=== PATIENT | female | born 1975 | race Caucasian/White ===

== ENCOUNTER 2017-01-24 15:25 | Emergency (ER) | payer MEDICAID | END 2017-01-24 15:55 | disposition home or self-care (01) | LOC: LB.ED 15:25 | DX: R11.0 Nausea (principal); Z53.21 Procedure and treatment not carried out due to patient leaving prior to being seen by health care provider | CPT/HCPCS: 99282 ==

== ENCOUNTER 2019-01-12 09:54 | Inpatient (IN) | payer MEDICAID ==
[2019-01-12] MEDS ORDERED: DICYCLOMINE 20 MG PO PRN (16:12)
[2019-01-12] MEDS ORDERED: Non-Formulary Medication 1 Each (Lorazepam [Lorazepam] 0.5 MG) PO PRN (16:33)
[2019-01-12] MEDS ORDERED: PROMETHAZINE HCL 25 MG PO PRN (16:33)
[2019-01-12] MEDS ORDERED: Dicyclomine 10 MG Cap PO PRN ×2 (16:33→18:36)
[2019-01-12] MEDS ORDERED: ALPRAZolam 0.25 MG Tab PO PRN (16:33)
[2019-01-12] MEDS ORDERED: Acetaminophen 325 MG Tab PO SCH (18:00)
[2019-01-12] MEDS ORDERED: Loperamide 2 MG Cap PO PRN (18:41)
[2019-01-12] MEDS ORDERED: LORazepam 0.5 MG Tab PO PRN (18:44)
[2019-01-12] MEDS ORDERED: Promethazine 25 MG Tab PO PRN (18:47)
[2019-01-12] MEDS ORDERED: Scopolamine 1.5 MG Transdermal Patch TRDERM SCH (19:00)
[2019-01-12] MEDS: oxyCODONE 5 MG Tab PO PRN (19:08)
[2019-01-12] MEDS: Gabapentin 100 MG Cap PO SCH (19:37)
[2019-01-12] MEDS: Ibuprofen 600 MG Tab PO SCH (19:38)
[2019-01-12] MEDS: Acetaminophen 650 MG Tab.ER PO SCH ×2 (19:38→23:31)
--- NOTE | 2019-01-12 19:40 | PCM.HP ---
H&P History of Present Illness - General Date of Service: 01/12/19 Admit Problem/Dx: Admission Diagnosis/Problem Admission Diagnosis/Problem Weakness S/P craniotomy Source of Information: Patient, Old Records, RN History Limitations: Reports: No Limitations - History of Present Illness Initial Comments - Free Text/Narative: 43 yr old female presents for SWING bed admission for strengthening, S/P craniotomy. Pt transferred by family from [facility], to [facility] this afternoon. Pt states she is having pain to head and pressure behind eyes, but improved from the past. Resolving Bruising noted to arms and right side of face and neck. Pt is alert and talkative and states thankful to be alive and able to function. States some dizziness persists intermittently and some anxiety and nausea. She states she has been ambulating with use of the walker. PT/OT ordered for strengthening. Dressing to head to be changed in am. No drainage noted to bandage. RN is reinforcing the bandage tonight. - Related Data Allergies/Adverse Reactions: Allergies Allergy/AdvReac Type Severity Reaction Status Date / Time No Known Allergies Allergy Verified 01/12/19 15:03 Home Medications: Home Meds ALPRAZolam [Alprazolam] 0.25 mg PO TID 01/12/19 [History] ALPRAZolam [Alprazolam] 0.5 mg PO Q8HR PRN 01/12/19 [History] Acetaminophen 650 mg PO Q6HR 01/12/19 [History] Bacitracin [Bacitracin Ophth Oint] 1 applic TOP DAILY 01/12/19 [History] Dicyclomine [Bentyl] 20 mg PO TID PRN 01/12/19 [History] Esomeprazole [NexIUM] 40 mg PO DAILY 01/12/19 [History] Gabapentin [Neurontin] 200 mg PO TID 01/12/19 [History] Ibuprofen 600 mg PO QID 01/12/19 [History] LORazepam 0.5 mg PO QID PRN 01/12/19 [History] Loperamide [Imodium] 2 mg PO DAILY 01/12/19 [History] Norgestimate-Ethinyl Estradiol [Norg-Ee 0.18-0.215-0.25/0.035] 1 each PO DAILY 01/12/19 [History] Ondansetron [Zofran ODT] 8 mg PO TID PRN 01/12/19 [History] Promethazine HCl 25 mg PO Q6H PRN 01/12/19 [History] Propranolol [Inderal] 10 mg PO BID 01/12/19 [History] Remove Patch 1 ea TRDERM BEDTIME 01/12/19 [History] Scopolamine [Transderm-Scop] 1 patch TD Q3D 01/12/19 [History] Sennosides/Docusate Sodium [Senna-Docusate Sodium Tablet] 2 tab PO BID 01/12/19 [History] oxyCODONE 1 - 2 tab PO Q6H PRN 01/12/19 [History] Social & Family History - Caffeine Use Caffeine Use: Reports: Coffee, Soda H&P Review of Systems - Review of Systems: Review Of Systems: See Below General: Reports: Weakness, Fatigue. Denies: Fever, Chills HEENT: Reports: Eye Pain, Headaches, Hearing Changes (States blood clot behind the left ear and no hearing from here now.). Denies: Sore Throat Pulmonary: Reports: Cough (some dry cough). Denies: Shortness of Breath, Wheezing Cardiovascular: Denies: Chest Pain, Dyspnea on Exertion, Edema Gastrointestinal: Reports: Nausea, Other (using stool softeners bid). Denies: Abdominal Pain, Difficulty Swallowing Genitourinary: Reports: No Symptoms Musculoskeletal: Reports: No Symptoms Skin: Reports: Wound (left posterior head) Psychiatric: Reports: Anxiety, Agitation. Denies: Depression, Suicidal Ideation Neurological: Reports: Dizziness, Headache, Weakness, Other (forgetting mid sentence of thoughts, occasional). Denies: Change in Speech Exam - Exam Exam: See Below - Exam Quality Assessment: No: Supplemental Oxygen, Urinary Catheter, Skin Breakdown General: Alert, Oriented, Cooperative HEENT: Mucosa Moist & [place] Neck: Supple, Trachea Midline Lungs: Clear to Auscultation, Normal Respiratory Effort Cardiovascular: Regular Rate, Regular Rhythm GI/Abdominal Exam: Normal Bowel Sounds, Soft, Non-Tender Extremities: Normal Inspection, Normal Range of Motion, Non-Tender, No Pedal Edema, Normal Capillary Refill Peripheral Pulses: 2+: Radial (L), Radial (R), Dorsalis Pedis (L), Dorsalis Pedis (R) Skin: Warm, Dry Neurological: Strength Equal Bilateral, Normal Speech Neuro Extensive - Mental Status: Alert, Oriented x3, Normal Mood/Affect, Normal Cognition Neuro Extensive - Motor, Sensory, Reflexes: CN II-XII Intact Psychiatric: Alert, Anxious - Problem List (1) Weakness SNOMED Code(s): 10468717 ICD Code: R53.1 - WEAKNESS Status: Acute Current Visit: Yes (2) S/P craniotomy SNOMED Code(s): 374297916, 70661898, 407685675 ICD Code: Z98.890 - OTHER SPECIFIED POSTPROCEDURAL STATES Status: Acute Current Visit: Yes (3) Anxiety SNOMED Code(s): 08522736 ICD Code: F41.9 - ANXIETY DISORDER, UNSPECIFIED Status: Acute Current Visit: Yes (4) Anemia SNOMED Code(s): 632921054 ICD Code: D64.9 - ANEMIA, UNSPECIFIED Status: Acute Current Visit: Yes Problem List Initiated/Reviewed/Updated: Yes Orders Last 24hrs: Active Orders 24 hr Category Date Time Status Patient Status [ADT] Routine ADT 01/12/19 12:05 Active Oxygen Therapy [RC] PRN Care 01/12/19 12:09 Active Up With Assistance [RC] ASDIRECTED Care 01/12/19 12:09 Active Vital Signs [RC] Q4H Care 01/12/19 12:09 Active OT Evaluation and Treatment [CONS] Routine Cons 01/12/19 16:41 Active PT Evaluation and Treatment [CONS] Routine Cons 01/12/19 16:41 Active Regular Diet [DIET] Diet 01/12/19 Dinner Ordered CBC WITH AUTO DIFF [HEME] Routine Lab 01/13/19 08:00 Ordered ALPRAZolam [Xanax] Med 01/12/19 20:00 Active 0.25 mg PO TID ALPRAZolam [Xanax] Med 01/12/19 18:32 Active 0.5 mg PO Q8H PRN Acetaminophen [Tylenol Arthritis Pain] Med 01/12/19 18:30 Active 650 mg PO Q6HR Bacitracin [Bacitracin Oint 1 GM] Med 01/13/19 08:00 Active 1 dose TOP DAILY Dicyclomine [Bentyl] Med 01/12/19 18:36 Active 20 mg PO TID PRN Docusate Sodium/Sennosides [Senna Plus] Med 01/12/19 20:00 Active 2 tab PO BID Esomeprazole [NexIUM] Med 01/13/19 07:00 Active 40 mg PO ACBREAKFAST Gabapentin [Neurontin] Med 01/12/19 20:00 Active 200 mg PO TID Ibuprofen [Motrin] Med 01/12/19 20:00 Active 600 mg PO QID LORazepam [Ativan] Med 01/12/19 18:44 Active 0.5 mg PO QID PRN Loperamide [Imodium] Med 01/12/19 18:41 Active 2 mg PO DAILY PRN Non-Formulary Medication [NF Drug] Med 01/13/19 08:00 Active 1 each PO DAILY Ondansetron [Zofran ODT] Med 01/12/19 18:46 Active 8 mg PO TID PRN Promethazine [Phenergan] Med 01/12/19 18:47 Active 25 mg PO Q6H PRN Propranolol [Inderal] Med 01/12/19 20:00 Active 10 mg PO BID Remove Patch Med 01/15/19 06:00 Active 1 ea TRDERM DAILY@0600 Scopolamine [Transderm-Scop] Med 01/15/19 06:00 Active 1.5 mg TRDERM Q3D oxyCODONE Med 01/12/19 18:20 Active 5 - 10 mg PO Q6H PRN Code Status [Resuscitation Status] Routine Resus Stat 01/12/19 15:30 Ordered Medication Orders Acetaminophen (Tylenol Arthritis Pain) 650 mg PO Q6HR [facility] Stop: 02/01/19 12:01 Alprazolam (Xanax) 0.5 mg PO Q8H PRN PRN Reason: Anxiety Alprazolam (Xanax) 0.25 mg PO TID [facility] Bacitracin (Bacitracin Oint 1 Gm) 1 dose TOP DAILY [facility] Stop: 01/23/19 08:01 Dicyclomine HCl (Bentyl) 20 mg PO TID PRN PRN Reason: Pain Esomeprazole Magnesium (Nexium) 40 mg PO ACBREAKFAST JUAN C Gabapentin (Neurontin) 200 mg PO TID [facility] Stop: 02/09/19 14:01 Ibuprofen (Motrin) 600 mg PO QID [facility] Stop: 01/22/19 20:01 Loperamide HCl (Imodium) 2 mg PO DAILY PRN PRN Reason: Diarrhea Lorazepam (Ativan) 0.5 mg PO QID PRN PRN Reason: Agitation Miscellaneous Information (Remove Patch) 1 ea TRDERM DAILY@0600 [facility] Norgestimate-Ethinyl Estradiol 0.18/0. 215/0.25 Tablet 1 each PO DAILY [facility] Ondansetron HCl (Zofran Odt) 8 mg PO TID PRN PRN Reason: Nausea Oxycodone HCl (Oxycodone) 5 - 10 mg PO Q6H PRN PRN Reason: Pain Last Admin: 01/12/19 19:08 Dose: 10 mg Promethazine HCl (Phenergan) 25 mg PO Q6H PRN PRN Reason: Nausea/Vomiting Stop: 01/16/19 18:48 Propranolol HCl (Inderal) 10 mg PO BID [facility] Scopolamine (Transderm-Scop) 1.5 mg TRDERM Q3D [facility] Senna/Docusate Sodium (Senna Plus) 2 tab PO BID [facility] Stop: 03/13/19 08:01 Assessment/Plan Comment:: 01-12-2019: Weakness: Consult for PT/OT for evaluation and treatment and strengthening Assist with ambulation as needed. Anxiety: Keep room quiet and lighting as tolerated. Medications as ordered. S/P craniotomy: Medication for H/A as ordered. Change dressing daily to head and prn, apply bacitracin to area. Medication for prevention of constipation as ordered. Anemia: CBC in am. Due to hinduism beliefs, pt declines blood transfusions.
[2019-01-12] MEDS ORDERED: PROPRANOLOL 10 MG PO SCH (20:00)
[2019-01-12] MEDS ORDERED: Gabapentin 100 MG Cap PO SCH (20:00)
[2019-01-12] MEDS ORDERED: Non-Formulary Medication 1 Each (Sennosides/Docusate Sodium [Senna-Docusate Sodium Tablet] PO SCH (20:00)
[2019-01-12] MEDS ORDERED: ALPRAZolam 0.25 MG Tab PO SCH (20:00)
[2019-01-12] MEDS ORDERED: Ibuprofen 600 MG Tab PO SCH (20:00)
[2019-01-12] MEDS: Propranolol 20 MG Tab PO SCH (21:49)
[2019-01-12] MEDS: ALPRAZolam 0.25 MG Tab PO SCH ×2 (21:49→21:59)
[2019-01-12] MEDS: ALPRAZolam 0.25 MG Tab PO PRN (21:59)
[2019-01-13] MEDS: oxyCODONE 5 MG Tab PO PRN ×4 (01:00→23:04)
[2019-01-13] MEDS ORDERED: Diazepam 5 MG Tab ONE (02:34)
[2019-01-13] MEDS ORDERED: Diazepam 5 MG Tab PO ONE (02:46)
[2019-01-13] MEDS ORDERED: Pantoprazole 40 MG Tab.CR PO SCH (07:00)
[2019-01-13] MEDS ORDERED: Non-Formulary Medication 1 Each (Loperamide [Imodium] 2 MG) PO SCH (08:00)
[2019-01-13] MEDS ORDERED: [UNRECOGNIZED DRUG - OTHER] PO SCH (08:00)
[2019-01-13] MEDS ORDERED: NORGESTIMATE ETHINYL ESTRADIOL PO SCH (08:00)
[2019-01-13] MEDS ORDERED: Fluconazole 150 MG Tab PO SCH (08:00)
[2019-01-13] MEDS ORDERED: Bacitracin Oint 1 GM U/D Packet TOP SCH (08:00)
[2019-01-13] MEDS: Ibuprofen 600 MG Tab PO SCH ×4 (08:12→19:59)
[2019-01-13] MEDS: Acetaminophen 650 MG Tab.ER PO SCH ×2 (08:12→11:39)
[2019-01-13] MEDS: Gabapentin 100 MG Cap PO SCH ×3 (08:13→19:59)
[2019-01-13] MEDS: ALPRAZolam 0.25 MG Tab PO SCH ×3 (08:14→20:09)
[2019-01-13] MEDS: Esomeprazole 40 MG Cap PO SCH (08:14)
[2019-01-13] MEDS: Bacitracin Oint 1 GM U/D Packet TOP SCH (08:14)
[2019-01-13] MEDS: Propranolol 20 MG Tab PO SCH ×2 (08:15→20:02)
[2019-01-13] MEDS: NORGESTIMATE ETHINYL ESTRADIOL PO SCH (08:24)
[2019-01-13] MEDS: Acetaminophen 325 MG Tab PO SCH (18:20)
[2019-01-13] MEDS: ALPRAZolam 0.25 MG Tab PO PRN (21:21)
[2019-01-14] MEDS: Acetaminophen 325 MG Tab PO SCH ×4 (01:04→18:50)
[2019-01-14] MEDS: Ibuprofen 600 MG Tab PO SCH ×4 (08:47→20:48)
[2019-01-14] MEDS: ALPRAZolam 0.25 MG Tab PO SCH ×3 (08:47→20:48)
[2019-01-14] MEDS: Propranolol 20 MG Tab PO SCH ×2 (08:48→20:50)
[2019-01-14] MEDS: Gabapentin 100 MG Cap PO SCH ×3 (08:48→20:49)
[2019-01-14] MEDS: Esomeprazole 40 MG Cap PO SCH (08:49)
[2019-01-14] MEDS: Bacitracin Oint 1 GM U/D Packet TOP SCH (08:50)
[2019-01-14] MEDS: NORGESTIMATE ETHINYL ESTRADIOL PO SCH (08:50)
[2019-01-14] MEDS ORDERED: Tuberculin, PPD 5 Units/0.1 ML 1 ML MDV IDERM ONE (08:52)
[2019-01-14] MEDS: oxyCODONE 5 MG Tab PO PRN ×2 (09:08→15:23)
[2019-01-14] MEDS: ALPRAZolam 0.25 MG Tab PO PRN (21:02)
[2019-01-15] MEDS: Acetaminophen 325 MG Tab PO SCH ×5 (00:21→23:19)
[2019-01-15] MEDS: ALPRAZolam 0.25 MG Tab PO PRN ×2 (00:46→23:19)
[2019-01-15] MEDS: Esomeprazole 40 MG Cap PO SCH (08:05)
[2019-01-15] MEDS: Bacitracin Oint 1 GM U/D Packet TOP SCH (09:44)
[2019-01-15] MEDS: Propranolol 20 MG Tab PO SCH ×2 (09:44→19:58)
[2019-01-15] MEDS: Ibuprofen 600 MG Tab PO SCH ×4 (09:45→19:57)
[2019-01-15] MEDS: Gabapentin 100 MG Cap PO SCH ×3 (09:46→19:58)
[2019-01-15] MEDS: ALPRAZolam 0.25 MG Tab PO SCH ×3 (09:47→19:58)
[2019-01-15] MEDS: Scopolamine 1.5 MG Transdermal Patch TRDERM SCH (10:00)
[2019-01-15] MEDS: oxyCODONE 5 MG Tab PO PRN ×2 (14:11→23:20)
[2019-01-15] MEDS: NORGESTIMATE ETHINYL ESTRADIOL PO SCH (15:15)
[2019-01-16] MEDS: Esomeprazole 40 MG Cap PO SCH (06:13)
[2019-01-16] MEDS: Acetaminophen 325 MG Tab PO SCH ×3 (06:13→18:27)
[2019-01-16] MEDS: Bacitracin Oint 1 GM U/D Packet TOP SCH ×3 (07:41→22:44)
[2019-01-16] MEDS: Gabapentin 100 MG Cap PO SCH ×3 (07:42→19:37)
[2019-01-16] MEDS: Ibuprofen 600 MG Tab PO SCH ×4 (07:43→19:35)
[2019-01-16] MEDS: NORGESTIMATE ETHINYL ESTRADIOL PO SCH (07:43)
[2019-01-16] MEDS: Propranolol 20 MG Tab PO SCH ×2 (07:43→19:36)
[2019-01-16] MEDS: ALPRAZolam 0.25 MG Tab PO SCH ×3 (07:43→19:34)
[2019-01-16] MEDS: oxyCODONE 5 MG Tab PO PRN ×2 (16:19→22:44)
--- NOTE | 2019-01-16 16:40 | PCM.PN ---
- General Info Date of Service: 01/16/19 Subjective Update: Patient states she is doing well and has not issues today. She has a good diet and her pain is controlled. She denies any dizziness or other symptoms. Functional Status: Reports: Pain Controlled, Tolerating Diet, Ambulating - Review of Systems General: Reports: Weakness HEENT: Reports: No Symptoms Pulmonary: Reports: No Symptoms Cardiovascular: Reports: No Symptoms Gastrointestinal: Reports: No Symptoms Musculoskeletal: Reports: No Symptoms Neurological: Reports: Weakness - Patient Data Vitals - Most Recent: Last Vital Signs Temp 36.8 C 01/16/19 08:00 Pulse 74 01/15/19 20:09 Resp 18 01/16/19 08:00 BP 118/74 01/16/19 08:00 Pulse Ox 98 01/16/19 08:00 Weight - Most Recent: 79.56 kg Med Orders - Current: Current Medications Acetaminophen (Tylenol) 650 mg PO Q6HR [facility] Last Admin: 01/16/19 11:32 Dose: 650 mg Alprazolam (Xanax) 0.5 mg PO Q8H PRN PRN Reason: Anxiety Last Admin: 01/15/19 23:19 Dose: 0.5 mg Alprazolam (Xanax) 0.25 mg PO TID [facility] Last Admin: 01/16/19 13:45 Dose: 0.25 mg Bacitracin (Bacitracin Oint 1 Gm) 1 dose TOP DAILY [facility] Stop: 01/23/19 08:01 Last Admin: 01/16/19 07:41 Dose: 1 dose Dicyclomine HCl (Bentyl) 20 mg PO TID PRN PRN Reason: Pain Esomeprazole Magnesium (Nexium) 40 mg PO ACBREAKFAST [facility] Last Admin: 01/16/19 06:13 Dose: 40 mg Gabapentin (Neurontin) 200 mg PO TID [facility] Stop: 02/09/19 14:01 Last Admin: 01/16/19 13:45 Dose: 200 mg Ibuprofen (Motrin) 600 mg PO QID [facility] Stop: 01/22/19 20:01 Last Admin: 01/16/19 16:18 Dose: 600 mg Loperamide HCl (Imodium) 2 mg PO DAILY PRN PRN Reason: Diarrhea Miscellaneous Information (Remove Patch) 1 ea TRDERM Q3D@0600 [facility] Last Admin: 01/16/19 06:03 Dose: Not Given Norgestimate-Ethinyl Estradiol 0.18/0. 215/0.25 Tablet 1 each PO DAILY [facility] Last Admin: 01/16/19 07:43 Dose: 1 each Ondansetron HCl (Zofran Odt) 8 mg PO TID PRN PRN Reason: Nausea Oxycodone HCl (Oxycodone) 5 - 10 mg PO Q6H PRN PRN Reason: Pain Last Admin: 01/16/19 16:19 Dose: 5 mg Promethazine HCl (Phenergan) 25 mg PO Q6H PRN PRN Reason: Nausea/Vomiting Stop: 01/16/19 18:48 Propranolol HCl (Inderal) 10 mg PO BID [facility] Last Admin: 01/16/19 07:43 Dose: 10 mg Scopolamine (Transderm-Scop) 1.5 mg TRDERM Q3D [facility] Last Admin: 01/15/19 10:00 Dose: 1.5 mg Senna/Docusate Sodium (Senna Plus) 2 tab PO BID [facility] Stop: 03/13/19 08:01 Last Admin: 01/16/19 07:42 Dose: 2 tab Discontinued Medications Acetaminophen (Tylenol) 650 mg PO Q6HR [facility] Stop: 02/01/19 12:01 Last Admin: 01/15/19 15:14 Dose: Not Given Acetaminophen (Tylenol Arthritis Pain) 650 mg PO Q6HR [facility] Stop: 02/01/19 12:01 Last Admin: 01/13/19 11:39 Dose: 650 mg Alprazolam (Xanax) 0.5 mg PO Q8HR PRN PRN Reason: Anxiety Alprazolam (Xanax) 0.25 mg PO TID [facility] Stop: 02/11/19 20:01 Bacitracin (Bacitracin Oint 1 Gm) 0 dose TOP DAILY [facility] Stop: 01/23/19 08:01 Diazepam (Valium.) 5 mg PO ONETIME ONE Stop: 01/13/19 02:47 Last Admin: 01/13/19 03:00 Dose: 5 mg Diazepam (Valium.) Confirm Administered Dose 5 mg .ROUTE .STK-MED ONE Stop: 01/13/19 02:35 Last Admin: 01/13/19 07:16 Dose: Not Given Dicyclomine HCl (Bentyl) 20 mg PO TID PRN PRN Reason: Pain Gabapentin (Neurontin) 200 mg PO TID [facility] Stop: 02/09/19 14:01 Ibuprofen (Motrin) 600 mg PO QID [facility] Stop: 01/22/19 16:01 Miscellaneous Information (Remove Patch) 1 ea TRDERM DAILY@0600 [facility] Last Admin: 01/15/19 12:49 Dose: 1 ea Dicyclomine 20mg (Tablets) 1 each PO TID PRN PRN Reason: PAIN Non-Formulary Medication (Loperamide [Imodium]) 2 mg PO DAILY [facility] Non-Formulary Medication (Lorazepam [Lorazepam]) 0.5 mg PO QID PRN PRN Reason: Agitation Non-Formulary Medication (Norgestimate-Ethinyl Estradiol [Norg-Ee 0.18-0.215- 0.25/0.035]) 1 each PO DAILY [facility] Non-Formulary Medication (Ondansetron [Zofran Odt]) 8 mg PO TID PRN PRN Reason: Nausea Non-Formulary Medication (Promethazine Hcl [Promethazine Hcl]) 25 mg PO Q6H PRN PRN Reason: Dizziness Non-Formulary Medication (Propranolol [Inderal]) 10 mg PO BID [facility] Non-Formulary Medication (Sennosides/Docusate Sodium [Senna-Docusate Sodium Tablet]) 2 tab PO BID [facility] Stop: 03/13/19 08:01 Oxycodone HCl (Oxycodone) 5 - 10 mg PO Q6H PRN PRN Reason: Pain Last Admin: 01/15/19 14:11 Dose: 5 mg Pantoprazole Sodium (Protonix) 40 mg PO ACBREAKFAST [facility] Scopolamine (Transderm-Scop) 1.5 mg TRDERM Q3D [facility] Last Admin: 01/12/19 19:19 Dose: Not Given Tuberculin PPD (Aplisol) 5 unit IDERM ONETIME ONE Stop: 01/14/19 08:53 Last Admin: 01/14/19 15:32 Dose: 5 unit - Exam General: Alert, Oriented, Cooperative HEENT: Pupils Equal, Pupils Reactive, EOMI Neck: Supple Lungs: Clear to Auscultation, Normal Respiratory Effort Cardiovascular: Regular Rate, Regular Rhythm Extremities: Normal Inspection Peripheral Pulses: 2+: Dorsalis Pedis (L), Dorsalis Pedis (R) Skin: Warm, Dry, Intact Wound/Incisions: Healing Well - Problem List & Annotations (1) S/P craniotomy SNOMED Code(s): 910180074, 72755371, 822087078 Code(s): Z98.890 - OTHER SPECIFIED POSTPROCEDURAL STATES Status: Acute Priority: High Current Visit: Yes (2) Weakness SNOMED Code(s): 90410703 Code(s): R53.1 - WEAKNESS Status: Acute Priority: High Current Visit: Yes - Problem List Review Problem List Initiated/Reviewed/Updated: Yes - My Orders Last 24 Hours: My Active Orders 01/15/19 18:31 oxyCODONE 5 - 10 mg PO Q6H PRN - Plan Plan:: 2019: Weakness: Consult for PT/OT for evaluation and treatment and strengthening Assist with ambulation as needed. Anxiety: Keep room quiet and lighting as tolerated. Medications as ordered. S/P craniotomy: Medication for H/A as ordered. Change dressing daily to head and prn, apply bacitracin to area. Medication for prevention of constipation as ordered. Anemia: CBC in am. Due to catholic beliefs, pt declines blood transfusions. 01/16/19 Pain management continued at this time and patient is stable and doing well. Continued wound care and application of bacitracin to incision as needed.
[2019-01-17] MEDS: ALPRAZolam 0.25 MG Tab PO PRN (00:18)
[2019-01-17] MEDS: Acetaminophen 325 MG Tab PO SCH ×4 (00:19→17:30)
[2019-01-17] MEDS: Ondansetron 4 MG Tab.DIS PO PRN (00:24)
[2019-01-17] MEDS: Esomeprazole 40 MG Cap PO SCH (06:11)
[2019-01-17] MEDS: Gabapentin 100 MG Cap PO SCH ×3 (09:12→20:20)
[2019-01-17] MEDS: Ibuprofen 600 MG Tab PO SCH ×4 (09:12→20:14)
[2019-01-17] MEDS: ALPRAZolam 0.25 MG Tab PO SCH ×3 (09:12→20:14)
[2019-01-17] MEDS: Propranolol 20 MG Tab PO SCH ×2 (09:13→20:14)
[2019-01-17] MEDS: NORGESTIMATE ETHINYL ESTRADIOL PO SCH (09:14)
[2019-01-17] MEDS: oxyCODONE 5 MG Tab PO PRN (14:37)
--- NOTE | 2019-01-17 15:32 | PCM.SN ---
- Free Text/Narrative Note: Patient was concerned that someone told her she could at any moment due to a clot in the brain. Patient has concerns if her activity and walking would cause this. Patient counseled and reassured at this time. Discussed the need for rehabilitation and return to normal activities as tolerated. Counseled on headache and symptoms of her recent head trauma.
[2019-01-17] MEDS: Bacitracin Oint 1 GM U/D Packet TOP SCH (20:13)
[2019-01-18] MEDS: ALPRAZolam 0.25 MG Tab PO PRN (00:11)
[2019-01-18] MEDS: Acetaminophen 325 MG Tab PO SCH ×4 (00:12→17:28)
[2019-01-18] MEDS: oxyCODONE 5 MG Tab PO PRN (05:00)
[2019-01-18] MEDS: Esomeprazole 40 MG Cap PO SCH ×2 (05:09→06:25)
[2019-01-18] MEDS: Ondansetron 4 MG Tab.DIS PO PRN (05:09)
[2019-01-18] MEDS: Scopolamine 1.5 MG Transdermal Patch TRDERM SCH (05:14)
[2019-01-18] MEDS: Propranolol 20 MG Tab PO SCH ×2 (08:25→21:00)
[2019-01-18] MEDS: Ibuprofen 600 MG Tab PO SCH ×4 (08:26→21:00)
[2019-01-18] MEDS: Gabapentin 100 MG Cap PO SCH ×3 (08:26→21:01)
[2019-01-18] MEDS: ALPRAZolam 0.25 MG Tab PO SCH ×3 (08:26→21:02)
[2019-01-18] MEDS: NORGESTIMATE ETHINYL ESTRADIOL PO SCH (08:31)
[2019-01-18] MEDS: Bacitracin Oint 1 GM U/D Packet TOP SCH (21:02)
[2019-01-19] MEDS: Acetaminophen 325 MG Tab PO SCH ×5 (00:33→23:06)
[2019-01-19] MEDS: ALPRAZolam 0.25 MG Tab PO PRN ×2 (00:33→23:07)
[2019-01-19] MEDS: oxyCODONE 5 MG Tab PO PRN ×3 (00:37→14:28)
[2019-01-19] MEDS: Esomeprazole 40 MG Cap PO SCH (06:51)
[2019-01-19] MEDS: NORGESTIMATE ETHINYL ESTRADIOL PO SCH (07:53)
[2019-01-19] MEDS: Gabapentin 100 MG Cap PO SCH ×3 (07:57→20:18)
[2019-01-19] MEDS: Ibuprofen 600 MG Tab PO SCH ×4 (07:58→22:12)
[2019-01-19] MEDS: ALPRAZolam 0.25 MG Tab PO SCH ×3 (07:58→20:16)
[2019-01-19] MEDS: Propranolol 20 MG Tab PO SCH ×2 (08:04→20:19)
[2019-01-19] MEDS ORDERED: Ibuprofen 600 MG Tab ONE (19:04)
[2019-01-19] MEDS: Bacitracin Oint 1 GM U/D Packet TOP SCH (20:16)
[2019-01-19] MEDS: Ondansetron 4 MG Tab.DIS PO PRN (20:25)
[2019-01-19] MEDS ORDERED: ALPRAZolam 0.25 MG Tab ONE (23:10)
[2019-01-20] MEDS: Acetaminophen 325 MG Tab PO SCH (06:41)
[2019-01-20] MEDS: Esomeprazole 40 MG Cap PO SCH (06:42)
[2019-01-20] MEDS: Ibuprofen 600 MG Tab PO SCH (08:23)
[2019-01-20] MEDS: Gabapentin 100 MG Cap PO SCH (08:25)
[2019-01-20] MEDS: ALPRAZolam 0.25 MG Tab PO SCH (08:27)
[2019-01-20] MEDS: Propranolol 20 MG Tab PO SCH (08:27)
[2019-01-20] MEDS: NORGESTIMATE ETHINYL ESTRADIOL PO SCH (09:06)
--- NOTE | 2019-01-20 13:22 | PCM.DCSUM1 ---
Discharge Summary - Hospital Course HPI Initial Comments: 43 yr female in the Swing bed program for strengthening, s/p craniotomy after head trauma/fall. PT/OT has completed and goals have been met. Incision to head is CDI. Pt continues with anxiety and some head pain and has been stable with the current regime. Pt plans to stay with a friend or family and has a return appointment with neurology next week. Diagnosis: Stroke: No - Discharge Data Discharge Date: 01/20/19 Discharge Disposition: Home, Self-Care 01 Condition: Good - Discharge Diagnosis/Problem(s) (1) Weakness SNOMED Code(s): 92971269 ICD Code: R53.1 - WEAKNESS Status: Acute Priority: High (2) S/P craniotomy SNOMED Code(s): 502257144, 05057516, 455490574 ICD Code: Z98.890 - OTHER SPECIFIED POSTPROCEDURAL STATES Status: Acute Priority: High (3) Anxiety SNOMED Code(s): 55853098 ICD Code: F41.9 - ANXIETY DISORDER, UNSPECIFIED Status: Acute (4) Anemia SNOMED Code(s): 463469645 ICD Code: D64.9 - ANEMIA, UNSPECIFIED Status: Acute - Patient Summary/Data Consults: Consultations 01/12/19 16:41 OT Evaluation and Treatment [CONS] Routine Please Evaluate and Treat. OT Reason for Consult: Strengthening This query below is only for informational purposes and is not editable. Admission Diagnosis/Problem: Weakness PT Evaluation and Treatment [CONS] Routine Please Evaluate and Treat. PT Reason for Consult: Strengthening This query below is only for informational purposes and is not editable. Admission Diagnosis/Problem: Weakness - Patient Instructions Diet: Usual Diet as Tolerated Activity: As Tolerated Driving: Do Not Drive Showering/Bathing: May Shower Wound/Incision, Other: Keep area clean, may shower Notify Provider of: Fever, Increased Pain, Nausea and/or Vomiting - Discharge Plan *PRESCRIPTION DRUG MONITORING PROGRAM REVIEWED*: Not Applicable *COPY OF PRESCRIPTION DRUG MONITORING REPORT IN PATIENT JAYLEN: Not Applicable ( pt has been hospitalized) Prescriptions/Med Rec: Acetaminophen 650 mg PO Q6HR #120 tablet ALPRAZolam [Alprazolam] 0.5 mg PO Q8HR PRN #20 tablet PRN Reason: Anxiety ALPRAZolam [Alprazolam] 0.25 mg PO TID #90 tablet Gabapentin [Neurontin] 200 mg PO TID #90 capsule Ibuprofen 600 mg PO QID #120 tablet Ondansetron [Zofran Odt] 8 mg PO TID PRN #30 tab.dis PRN Reason: Nausea oxyCODONE 1 - 2 tab PO Q6H PRN #30 tablet PRN Reason: Pain Pantoprazole Sodium 40 mg PO DAILY #30 tablet.dr Propranolol [Inderal] 10 mg PO BID #60 tablet Propranolol [Inderal] 10 mg PO BID 30 Days tablet Scopolamine [Transderm-Scop] 1 patch TD Q3D #10 patch Sennosides/Docusate Sodium [Senna-Docusate Sodium Tablet] 2 tab PO BID #120 tablet Home Medications: Home Meds Bacitracin [Bacitracin Ophth Oint] 1 applic TOP DAILY 01/12/19 [History] Dicyclomine [Bentyl] 20 mg PO TID PRN 01/12/19 [History] Loperamide [Imodium] 2 mg PO DAILY 01/12/19 [History] Norgestimate-Ethinyl Estradiol [Norg-Ee 0.18-0.215-0.25/0.035] 1 each PO DAILY 01/12/19 [History] Promethazine HCl 25 mg PO Q6H PRN 01/12/19 [History] Remove Patch 1 ea TRDERM BEDTIME 01/12/19 [History] ALPRAZolam [Alprazolam] 0.25 mg PO TID #90 tablet 01/20/19 [Rx] ALPRAZolam [Alprazolam] 0.5 mg PO Q8HR PRN #20 tablet 01/20/19 [Rx] Acetaminophen 650 mg PO Q6HR #120 tablet 01/20/19 [Rx] Gabapentin [Neurontin] 200 mg PO TID #90 capsule 01/20/19 [Rx] Ibuprofen 600 mg PO QID #120 tablet 01/20/19 [Rx] Loperamide [Imodium] 2 mg PO DAILY PRN cap 01/20/19 [Rx] Non-Formulary Medication [NF Drug] 1 each PO DAILY each 01/20/19 [Rx] Ondansetron [Zofran Odt] 8 mg PO TID PRN #30 tab.dis 01/20/19 [Rx] Pantoprazole Sodium 40 mg PO DAILY #30 tablet. 01/20/19 [Rx] Propranolol [Inderal] 10 mg PO BID #60 tablet 01/20/19 [Rx] Propranolol [Inderal] 10 mg PO BID 30 Days tablet 01/20/19 [Rx] Scopolamine [Transderm-Scop] 1 patch TD Q3D #10 patch 01/20/19 [Rx] Sennosides/Docusate Sodium [Senna-Docusate Sodium Tablet] 2 tab PO BID #120 tablet 01/20/19 [Rx] oxyCODONE 1 - 2 tab PO Q6H PRN #30 tablet 01/20/19 [Rx] Patient Handouts: Craniotomy, Care After, [id number] - Discharge Summary/Plan Comment DC Time >30 min.: Yes (Counseled on post discharge care and medications.) Discharge Summary/Plan Comment: Keep incision to head clean and may wash as tolerated. Diet as tolerated. Please no driving. Recommend no alcohol use with your medications. Exercise and activity as discussed with PT/OT. Medications as ordered. You don't have to take the Oxycodone, if you don't need it. Alprazolam 0.25 mg PO tid and Alprazolam 0.5 mg PO every 8 hour prn anxiety. These medications need to be monitored closely and no one else should use them. Do not take more than prescribed. Warning given to prevent overdose/demise. Pt states no suicide ideation and wouldn't every take too much of the medication and wants to live to be here for her daughter. Anemia in the hospital. Recommend daily iron tablet after largest meal of the day. Continue with stool softeners as long as taking the oxycodone. Follow-up with appointments as scheduled. Follow-up in clinic in 10-14 days with PCP. If headache or dizziness increases, limit activity and monitor symptoms. RTC if symptoms persist and to ER if symptoms worsen. - General Info Date of Service: 01/20/19 Admission Dx/Problem (Free Text: Admission Diagnosis/Problem Admission Diagnosis/Problem Weakness S/P craniotomy Subjective Update: Pt states she is anxious to go home, but is ready to go home. States she does smoke infrequently and states no alcohol use. Functional Status: Reports: Pain Controlled, Tolerating Diet, Ambulating, Urinating - Review of Systems General: Reports: No Symptoms HEENT: Reports: Headaches (occasional headache, oxycodone relieves pain) Pulmonary: Reports: No Symptoms Cardiovascular: Reports: No Symptoms Gastrointestinal: Reports: No Symptoms Genitourinary: Reports: No Symptoms Musculoskeletal: Reports: No Symptoms Skin: Reports: Other (incision to head is healing) Neurological: Reports: Other (only time dizzy, if get up to quickly from lying down, has a walker to use at home.). Denies: Trouble Speaking, Difficulty Walking, Change in Speech Psychiatric: Reports: Anxiety - Patient Data Vitals - Most Recent: Last Vital Signs Temp 98.1 F 01/20/19 08:23 Pulse 86 01/20/19 08:00 Resp 16 01/20/19 08:00 BP 154/97 H 01/20/19 08:00 Pulse Ox 99 01/20/19 08:00 Weight - Most Recent: 175 lb 6.4 oz Med Orders - Current: Current Medications Discontinued Medications Acetaminophen (Tylenol) 650 mg PO Q6HR [facility] Stop: 02/01/19 12:01 Last Admin: 01/15/19 15:14 Dose: Not Given Acetaminophen (Tylenol Arthritis Pain) 650 mg PO Q6HR [facility] Stop: 02/01/19 12:01 Last Admin: 01/13/19 11:39 Dose: 650 mg Acetaminophen (Tylenol) 650 mg PO Q6HR [facility] Last Admin: 01/20/19 06:41 Dose: 650 mg Alprazolam (Xanax) 0.5 mg PO Q8HR PRN PRN Reason: Anxiety Alprazolam (Xanax) 0.25 mg PO TID [facility] Stop: 02/11/19 20:01 Alprazolam (Xanax) 0.5 mg PO Q8H PRN PRN Reason: Anxiety Last Admin: 01/19/19 23:07 Dose: 0.5 mg Alprazolam (Xanax) 0.25 mg PO TID [facility] Last Admin: 01/20/19 08:27 Dose: 0.25 mg Alprazolam (Xanax) Confirm Administered Dose 0.25 mg .ROUTE .STK-MED ONE Stop: 01/19/19 23:11 Last Admin: 01/19/19 23:17 Dose: Not Given Bacitracin (Bacitracin Oint 1 Gm) 0 dose TOP DAILY [facility] Stop: 01/23/19 08:01 Bacitracin (Bacitracin Oint 1 Gm) 1 dose TOP DAILY [facility] Stop: 01/23/19 08:01 Last Admin: 01/16/19 19:45 Dose: 1 dose Bacitracin (Bacitracin Oint 1 Gm) 1 dose TOP BEDTIME [facility] Last Admin: 01/19/19 20:16 Dose: 1 dose Diazepam (Valium.) 5 mg PO ONETIME ONE Stop: 01/13/19 02:47 Last Admin: 01/13/19 03:00 Dose: 5 mg Diazepam (Valium.) Confirm Administered Dose 5 mg .ROUTE .STK-MED ONE Stop: 01/13/19 02:35 Last Admin: 01/13/19 07:16 Dose: Not Given Dicyclomine HCl (Bentyl) 20 mg PO TID PRN PRN Reason: Pain Dicyclomine HCl (Bentyl) 20 mg PO TID PRN PRN Reason: Pain Esomeprazole Magnesium (Nexium) 40 mg PO ACBREAKFAST [facility] Last Admin: 01/20/19 06:42 Dose: 40 mg Gabapentin (Neurontin) 200 mg PO TID [facility] Stop: 02/09/19 14:01 Gabapentin (Neurontin) 200 mg PO TID [facility] Stop: 02/09/19 14:01 Last Admin: 01/20/19 08:25 Dose: 200 mg Ibuprofen (Motrin) 600 mg PO QID [facility] Stop: 01/22/19 16:01 Ibuprofen (Motrin) 600 mg PO QID [facility] Stop: 01/22/19 20:01 Last Admin: 01/20/19 08:23 Dose: 600 mg Ibuprofen (Motrin) Confirm Administered Dose 600 mg .ROUTE .STK-MED ONE Stop: 01/19/19 19:05 Last Admin: 01/19/19 19:08 Dose: Not Given Loperamide HCl (Imodium) 2 mg PO DAILY PRN PRN Reason: Diarrhea Miscellaneous Information (Remove Patch) 1 ea TRDERM DAILY@0600 [facility] Last Admin: 01/15/19 12:49 Dose: 1 ea Miscellaneous Information (Remove Patch) 1 ea TRDERM Q3D@0600 [facility] Last Admin: 01/19/19 06:50 Dose: Not Given Dicyclomine 20mg (Tablets) 1 each PO TID PRN PRN Reason: PAIN Norgestimate-Ethinyl Estradiol 0.18/0. 215/0.25 Tablet 1 each PO DAILY [facility] Last Admin: 01/20/19 09:06 Dose: Not Given Non-Formulary Medication (Loperamide [Imodium]) 2 mg PO DAILY [facility] Non-Formulary Medication (Lorazepam [Lorazepam]) 0.5 mg PO QID PRN PRN Reason: Agitation Non-Formulary Medication (Norgestimate-Ethinyl Estradiol [Norg-Ee 0.18-0.215- 0.25/0.035]) 1 each PO DAILY [facility] Non-Formulary Medication (Ondansetron [Zofran Odt]) 8 mg PO TID PRN PRN Reason: Nausea Non-Formulary Medication (Promethazine Hcl [Promethazine Hcl]) 25 mg PO Q6H PRN PRN Reason: Dizziness Non-Formulary Medication (Propranolol [Inderal]) 10 mg PO BID [facility] Non-Formulary Medication (Sennosides/Docusate Sodium [Senna-Docusate Sodium Tablet]) 2 tab PO BID [facility] Stop: 03/13/19 08:01 Ondansetron HCl (Zofran Odt) 8 mg PO TID PRN PRN Reason: Nausea Last Admin: 01/19/19 20:25 Dose: 8 mg Oxycodone HCl (Oxycodone) 5 - 10 mg PO Q6H PRN PRN Reason: Pain Last Admin: 01/15/19 14:11 Dose: 5 mg Oxycodone HCl (Oxycodone) 5 - 10 mg PO Q6H PRN PRN Reason: Pain Last Admin: 01/19/19 14:28 Dose: 5 mg Pantoprazole Sodium (Protonix) 40 mg PO ACBREAKFAST [facility] Promethazine HCl (Phenergan) 25 mg PO Q6H PRN PRN Reason: Nausea/Vomiting Stop: 01/16/19 18:48 Propranolol HCl (Inderal) 10 mg PO BID [facility] Last Admin: 01/20/19 08:27 Dose: 10 mg Scopolamine (Transderm-Scop) 1.5 mg TRDERM Q3D [facility] Last Admin: 01/12/19 19:19 Dose: Not Given Scopolamine (Transderm-Scop) 1.5 mg TRDERM Q3D [facility] Last Admin: 01/18/19 05:14 Dose: 1.5 mg Senna/Docusate Sodium (Senna Plus) 2 tab PO BID [facility] Stop: 03/13/19 08:01 Last Admin: 01/20/19 08:26 Dose: 2 tab Tuberculin PPD (Aplisol) 5 unit IDERM ONETIME ONE Stop: 01/14/19 08:53 Last Admin: 01/14/19 15:32 Dose: 5 unit - Exam General: Reports: Alert, Oriented, Cooperative, No Acute Distress HEENT: Reports: Pupils Equal, Pupils Reactive, Mucous Membr. Moist/[place] Neck: Reports: Supple, Trachea Midline Lungs: Reports: Clear to Auscultation, Normal Respiratory Effort Cardiovascular: Reports: Regular Rate, Regular Rhythm GI/Abdominal Exam: Soft, Non-Tender (Female) Exam: Deferred Rectal (Female) Exam: Deferred Back Exam: Reports: Normal Inspection, Full Range of Motion Extremities: Normal Inspection, Normal Range of Motion, Non-Tender, No Pedal Edema Skin: Reports: Warm, Dry Wound/Incisions: Reports: Healing Well, No Drainage. Denies: Erythema Neurological: Reports: No New Focal Deficit, Normal Gait, Normal Speech Psy/Mental Status: Reports: Alert, Normal Affect, Normal Mood
== END 2019-01-20 12:33 | disposition home or self-care (01) | DRG 948 ==
LOC: UNDOADMIN 11:33 → LB.MS 11:33
PROVIDERS: ADMIT Nurse Practitioner Family; ATTEND Nurse Practitioner Family
DX: R53.1 Weakness (principal); Z98.890 Other specified postprocedural states; Z11.1 Encounter for screening for respiratory tuberculosis; D64.9 Anemia, unspecified; S09.90XD Unspecified injury of head, subsequent encounter; F41.9 Anxiety disorder, unspecified; R51 Headache; F17.210 Nicotine dependence, cigarettes, uncomplicated; R42 Dizziness and giddiness
CPT/HCPCS: 36415; 85025; 86580; 87070; 97110-GP; 97112-GP; 97116-GP; 97162-GP; 97165-GO; 97530-GO; 97530-GP; 97535-GO; A9270-GY

== ENCOUNTER 2019-04-15 04:56 | Emergency (ER) | payer MEDICAID ==
[2019-04-15] MEDS ORDERED: HYDROmorphone 2 MG/ML SDV IM ONE (05:57)
[2019-04-15] MEDS ORDERED: Ketorolac 30 MG/ML SDV IM ONE (06:33)
--- NOTE | 2019-04-15 06:42 | EDM.PDOC ---
ED HPI GENERAL MEDICAL PROBLEM - General Time Seen by Provider: 04/15/19 05:30 Source of Information: Reports: Patient History Limitations: Reports: No Limitations - History of Present Illness INITIAL COMMENTS - FREE TEXT/NARRATIVE: Pt is a 43 year old female , who presents to emergency room with chronic headache since December of 2018. She had left occipital craniotomy with evacuation of bleed. Since ten she has been having constant headache. She describes her headache as a dull achy pain over the left side of the occiput, and radiates anteriorly into the frontal region. Some times pain gets sharp and throbbing and spreads all over the head. Today she is having worse pain all over the head , rates her headache at10/10. No nausea or vomiting. No blurry vision. No vertigo or dizziness. No weakness in the extremities. Pt has been followup with her neurosurgeon and also neurologist. He last visit to ( neurologist) was about 1 month ago. She has been followed up by Dior Blackwood CNP and Dr. Frias here. Pt has been on oxycodone 5mg 1-2 tabs every 6 hrs, Gabapentin 600mg 2 tabs twice daily and Toradol 1-2 tabs daily for her headache, which she claims is not helping with her headache. She is here as her oxycodone are down to only 2 more tablets, and her headache has got worse. Duration: Week(s): (4 months), Constant, Getting Worse Location: Reports: Head Quality: Reports: Ache, Dull, Sharp Severity: Moderate Improves with: Reports: None Worsens with: Reports: None Associated Symptoms: Reports: Headaches. Denies: Confusion, Chest Pain, Cough, Diaphoresis, Fever/Chills, Nausea/Vomiting, Rash, Seizure, Shortness of Breath, Syncope, Weakness - Related Data Allergies Allergy/AdvReac Type Severity Reaction Status Date / Time No Known Allergies Allergy Verified 01/12/19 15:03 Home Meds: Home Meds Dicyclomine [Bentyl] 20 mg PO TID PRN 01/12/19 [History] Loperamide [Imodium] 2 mg PO DAILY 01/12/19 [History] Norgestimate-Ethinyl Estradiol [Norg-Ee 0.18-0.215-0.25/0.035] 1 each PO DAILY 01/12/19 [History] Promethazine HCl 25 mg PO Q6H PRN 01/12/19 [History] ALPRAZolam [Alprazolam] 0.5 mg PO Q8HR PRN #20 tablet 01/20/19 [Rx] Ondansetron [Zofran Odt] 8 mg PO TID PRN #30 tab.dis 01/20/19 [Rx] Pantoprazole Sodium 40 mg PO DAILY #30 tablet.dr 01/20/19 [Rx] Propranolol [Inderal] 10 mg PO BID 30 Days tablet 01/20/19 [Rx] oxyCODONE 1 - 2 tab PO Q6H PRN #30 tablet 01/20/19 [Rx] ALPRAZolam [Alprazolam] 0.25 mg PO TID 04/15/19 [History] Gabapentin [Neurontin] 1,200 mg PO TID 04/15/19 [History] Ketorolac [Toradol] 1 - 2 mg PO BEDTIME 04/15/19 [History] Past Medical History HEENT History: Reports: Hard of Hearing, Other (See Below) Cardiovascular History: Reports: None Respiratory History: Reports: Bronchitis, Recurrent, Pneumonia, Recurrent Gastrointestinal History: Reports: Other (See Below) Other Gastrointestinal History: IBS Genitourinary History: Reports: None 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: Musculoskeletal History: Reports: Back Pain, Chronic, Neck Pain, Chronic Neurological History: Reports: Head Trauma, Seizure, Other (See Below) Other Neuro History: Recent traumatic brain injury with hematoma Psychiatric History: Reports: Addiction, Anxiety, Depression, Emotional Problems , Mood Swings, Panic Attack, Suicide Attempt, Suicidal Ideation Endocrine/Metabolic History: Reports: None Hematologic History: Reports: Anemia Other Hematologic History: Border line anemia Dermatologic History: Reports: None, Other (See Below) Other Dermatologic History: Yeast on upper left shoulder/chest area - Infectious Disease History Infectious Disease History: Reports: Chicken Pox - Past Surgical History Head Surgeries/Procedures: Reports: Other (See Below) HEENT Surgical History: Reports: Tonsillectomy Cardiovascular Surgical History: Reports: None Respiratory Surgical History: Reports: None Female Surgical History: Reports: None Endocrine Surgical History: Reports: None Neurological Surgical History: Reports: None Dermatological Surgical History: Reports: None Social & Family History - Caffeine Use Caffeine Use: Reports: Soda, Tea ED ROS GENERAL - Review of Systems Review Of Systems: See Below Constitutional: Denies: Fever, Chills, Weakness HEENT: Denies: Rhinitis, Throat Pain Respiratory: Denies: Shortness of Breath, Cough, Sputum Cardiovascular: Denies: Chest Pain, Lightheadedness GI/Abdominal: Denies: Abdominal Pain, Nausea, Vomiting Musculoskeletal: Denies: Joint Pain, Joint Swelling Skin: Denies: Bruising, Pruritis, Rash Neurological: Reports: Headache. Denies: Confusion, Dizziness, Numbness, Tingling, Weakness ED EXAM, GENERAL - Physical Exam Exam: See Below Exam Limited By: No Limitations General Appearance: Alert, WD/WN, Mild Distress Eye Exam: Bilateral Eye: EOMI, PERRL Ears: Normal External Exam, Normal Canal, Hearing Grossly Normal, Normal TMs Ear Exam: Bilateral Ear: Auricle Normal, Canal Normal, TM normal Nose: Normal Inspection, Normal Mucosa, No Blood Throat/Mouth: Normal Inspection, Normal Lips, Normal Teeth, Normal Gums, Normal Oropharynx, Normal Voice, No Airway Compromise Head: Atraumatic, Normocephalic Neck: Normal Inspection, Supple, Non-Tender, Full Range of Motion Respiratory/Chest: No Respiratory Distress, Lungs Clear, Normal Breath Sounds, No Accessory Muscle Use, Chest Non-Tender Cardiovascular: Normal Peripheral Pulses, Regular Rate, Rhythm, No Edema, No Gallop, No JVD, No Murmur, No Rub Extremities: Normal Inspection, Normal Range of Motion, Non-Tender, Normal Capillary Refill, No Pedal Edema Neurological: Alert, Oriented, CN II-XII Intact, Normal Cognition, Normal Gait, No Motor/Sensory Deficits Skin Exam: Warm, Intact Course - Vital Signs Text/Narrative:: Pt has had fall and sustained an occipital epidural with craniotomy done at [facility] in December 2018. Pt has had chronic headache since the fall. She has seen neurosurgeon, neurologist , ENT. I do not see any medical records in the [facility] chart.Her [facility] only shows a swing bed admission. I cannot pull any of her medical records from [facility] today.Apparently she has had several visits with [facility] providers over the period.It is hard to understand who has prescribed her what medication at this point. Her headache is constant in the left occiput with radiation to left frontal region, type varies from dull achy to throbbing, severity of 5-10/10.Her CT head done today is negative for acute process. This could be post-traumatic headache, chronic subdural headache from dural irritation, stress headache,muscular headaches, Narcotics or drug induced headache. Patient did receive Toradol 30mg and Dilaudid 1mg IM in the emergency room. I have advised patient to go home and rest.Pt is asking her oxycodone refill, as she only has 2 tablets left. It is 6:30 am, I have advised patient to call clinic med refill nurse at 8Am and have it refilled through her primary care provider. Followup with her primary care provider. Pt should sign release of information with her primary care and get all her medical records to the facility. - Orders/Labs/Meds Orders: Active Orders 24 hr Category Date Time Status Head wo Cont [CT] Stat Exams 04/15/19 05:56 Taken Meds: Medications Discontinued Medications Generic Name Dose Route Start Last Admin Trade Name Freq PRN Reason Stop Dose Admin Hydromorphone HCl 1 mg 04/15/19 05:57 04/15/19 05:40 Dilaudid IM 04/15/19 05:58 1 mg ONETIME ONE Administration Ketorolac Tromethamine 30 mg 04/15/19 06:33 Toradol IM 04/15/19 06:34 ONETIME ONE Departure - Departure Time of Disposition: 06:45 Disposition: Home, Self-Care 01 Condition: Fair Clinical Impression: Chronic headache - Discharge Information *PRESCRIPTION DRUG MONITORING PROGRAM REVIEWED*: Not Applicable *COPY OF PRESCRIPTION DRUG MONITORING REPORT IN PATIENT JAYLEN: Not Applicable Instructions: Cluster Headache, Headache and Arthritis, Tension Headache, Adult Referrals: PCP,None [Primary Care Provider] - Additional Instructions: Follow up with Dr Frias in clinic this morning to get pain meds refilled. Follow up with neurologist. Return to ER if ROBISON symptoms increase. - Problem List & Annotations (1) Chronic headache SNOMED Code(s): 618060022 Code(s): R51 - HEADACHE Status: Acute - Problem List Review Problem List Initiated/Reviewed/Updated: Yes - My Orders Last 24 Hours: My Active Orders 04/15/19 05:56 Head wo Cont [CT] Stat - Assessment/Plan Last 24 Hours: My Active Orders 04/15/19 05:56 Head wo Cont [CT] Stat Assessment:: Chronic headache Plan: Pt has had fall and sustained an occipital epidural with craniotomy done at [facility] in December 2018. Pt has had chronic headache since the fall. She has seen neurosurgeon, neurologist , ENT. I do not see any medical records in the [facility] chart.Her [facility] only shows a swing bed admission. I cannot pull any of her medical records from [facility] today.Apparently she has had several visits with [facility] providers over the period.It is hard to understand who has prescribed her what medication at this point. Her headache is constant in the left occiput with radiation to left frontal region, type varies from dull achy to throbbing, severity of 5-10/10.Her CT head done today is negative for acute process. This could be post-traumatic headache, chronic subdural headache from dural irritation, stress headache,muscular headaches, Narcotics or drug induced headache. Patient did receive Toradol 30mg and Dilaudid 1mg IM in the emergency room. I have advised patient to go home and rest.Pt is asking her oxycodone refill, as she only has 2 tablets left. It is 6:30 am, I have advised patient to call clinic med refill nurse at 8Am and have it refilled through her primary care provider. Followup with her primary care provider. Pt should sign release of information with her primary care and get all her medical records to the facility.
--- NOTE | 2019-04-15 08:52 | CT ---
DATE OF SERVICE: 04/15/19 CLINICAL DATA: chronic headache UNENHANCED BRAIN CT: Multislice acquisition through the brain without IV contrast was performed. Comparison is made to a prior unenhanced brain CT dated 03/16/19. No masses or mass effect. No intracranial hemorrhage. No evidence of acute or subacute infarct. There is a craniotomy defect in the left posterior parietal region. IMPRESSION: No acute intracranial abnormalities. [id number] [facility]
== END 2019-04-15 06:39 | disposition home or self-care (01) ==
LOC: LB.ED 04:56
DX: R51 Headache (principal); F41.9 Anxiety disorder, unspecified; F32.9 Major depressive disorder, single episode, unspecified; Z86.2 Personal history of diseases of the blood and blood-forming organs and certain disorders involving the immune mechanism; Z79.899 Other long term (current) drug therapy
CPT/HCPCS: 70450; 96372; 99284; J1170; J1885

== ENCOUNTER 2019-12-25 07:21 | Emergency (ER) | payer MEDICAID ==
[2019-12-25] MEDS ORDERED: Acetaminophen/oxyCODONE 325-5 MG Tab ONE (08:00)
[2019-12-25] MEDS ORDERED: HYDROmorphone 2 MG/ML SDV IM ONE (08:44)
[2019-12-25] MEDS ORDERED: Ketorolac 30 MG/ML SDV IM ONE (08:44)
--- NOTE | 2019-12-25 15:51 | EDM.PDOC ---
ED HPI GENERAL MEDICAL PROBLEM - General Chief Complaint: Headache Stated Complaint: Headache Time Seen by Provider: 12/25/19 07:30 Source of Information: Reports: Patient History Limitations: Reports: No Limitations - History of Present Illness INITIAL COMMENTS - FREE TEXT/NARRATIVE: patient with long history of daily headaches or past year after craniotomy for intracranial bleed. Takes oxycodone 5 mg 1-2 tablets every day prn for h/a. Had 25 pills for month and is out of her meds. Dr. Frias wanted her to wait until month was up to obtain refill. Took Toradol and Dilaudid Imin pas with good results. H/a no different than usual today. Out of her meds today. Onset: Today Onset Date: 12/28/18 Duration: Recurring, Other (Daily for 1 year) Location: Reports: Head Social & Family History - Living Situation & Occupation Living situation: Reports: with Significant Other Occupation: Disabled ED ROS GENERAL - Review of Systems Review Of Systems: See Below Constitutional: Denies: Fever, Chills, Weakness HEENT: Denies: Ear Discharge, Ear Pain Respiratory: Reports: Cough. Denies: Shortness of Breath Cardiovascular: Denies: Chest Pain GI/Abdominal: Denies: Abdominal Pain, Diarrhea, Nausea, Vomiting : Reports: No Symptoms Neurological: Reports: Dizziness, Headache. Denies: Difficulty Walking, Gait Disturbance ED EXAM, GENERAL - Physical Exam Exam Limited By: No Limitations General Appearance: Alert, Mild Distress Eye Exam: Bilateral Eye: EOMI, Normal Inspection Ears: Normal External Exam, Normal Canal, Hearing Grossly Normal, Normal TMs Ear Exam: Bilateral Ear: Auricle Normal, Canal Normal, TM normal Throat/Mouth: Normal Inspection, Normal Lips, Normal Oropharynx, Normal Voice, No Airway Compromise Head: Atraumatic, Normocephalic Neck: Supple, Non-Tender, Full Range of Motion Respiratory/Chest: No Respiratory Distress, Lungs Clear, Normal Breath Sounds Cardiovascular: Regular Rate, Rhythm GI/Abdominal: Soft, Non-Tender, No Distention Back Exam: Other Extremities: Normal Inspection, Normal Range of Motion Neurological: Alert, Oriented, CN II-XII Intact, Normal Cognition, No Motor/ Sensory Deficits. No: Abnormal Gait Psychiatric: Normal Affect Skin Exam: Warm, Dry, Intact Course - Vital Signs Text/Narrative:: Patient treated with 1 mg dilaudid and 30 mg Toradol IV. Will dispense percocet 5/325 1 -2 tablet every day as needed for headache #10 dispensed - Orders/Labs/Meds Meds: See above Departure - Departure Time of Disposition: 09:00 Disposition: Home, Self-Care 01 Clinical Impression: Headache, post-traumatic, chronic - Discharge Information *PRESCRIPTION DRUG MONITORING PROGRAM REVIEWED*: No *COPY OF PRESCRIPTION DRUG MONITORING REPORT IN PATIENT JAYLEN: No Forms: ED Department Discharge Sepsis Event Note - Focused Exam Date Exam was Performed: 12/25/19 Time Exam was Performed: 15:30 Onset Date: 12/28/18 Location: Reports: Head Quality: Reports: Ache Severity: Severe - Related Data Allergies Allergy/AdvReac Type Severity Reaction Status Date / Time No Known Allergies Allergy Verified 12/25/19 07:52 Home Meds: Home Meds Dicyclomine [Bentyl] 20 mg PO TID PRN 01/12/19 [History] Loperamide [Imodium] 2 mg PO DAILY 01/12/19 [History] ALPRAZolam [Alprazolam] 0.5 mg PO Q8HR PRN #20 tablet 01/20/19 [Rx] Ondansetron [Zofran Odt] 8 mg PO TID PRN #30 tab.dis 01/20/19 [Rx] Pantoprazole Sodium 40 mg PO DAILY #30 tablet. 01/20/19 [Rx] Propranolol [Inderal] 10 mg PO BID 30 Days tablet 01/20/19 [Rx] oxyCODONE 1 - 2 tab PO Q6H PRN #30 tablet 01/20/19 [Rx] ALPRAZolam [Alprazolam] 0.25 mg PO TID 04/15/19 [History] Gabapentin [Neurontin] 1,200 mg PO TID 04/15/19 [History] Ketorolac [Toradol] 1 - 2 mg PO BEDTIME 04/15/19 [History] Past Medical History HEENT History: Reports: Hard of Hearing, Other (See Below) Cardiovascular History: Reports: None Respiratory History: Reports: Bronchitis, Recurrent, Pneumonia, Recurrent Gastrointestinal History: Reports: Other (See Below) Other Gastrointestinal History: IBS Genitourinary History: Reports: None 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: Musculoskeletal History: Reports: Back Pain, Chronic, Neck Pain, Chronic Neurological History: Reports: Head Trauma, Seizure, Other (See Below) Other Neuro History: Recent traumatic brain injury with hematoma Psychiatric History: Reports: Addiction, Anxiety, Depression, Emotional Problems , Mood Swings, Panic Attack, Suicide Attempt, Suicidal Ideation Endocrine/Metabolic History: Reports: None Hematologic History: Reports: Anemia Other Hematologic History: Border line anemia Dermatologic History: Reports: None, Other (See Below) Other Dermatologic History: Yeast on upper left shoulder/chest area - Infectious Disease History Infectious Disease History: Reports: Chicken Pox - Past Surgical History Head Surgeries/Procedures: Reports: Other (See Below) HEENT Surgical History: Reports: Tonsillectomy Cardiovascular Surgical History: Reports: None Respiratory Surgical History: Reports: None Female Surgical History: Reports: None Endocrine Surgical History: Reports: None Neurological Surgical History: Reports: None Dermatological Surgical History: Reports: None Social & Family History - Family History Family Medical History: Noncontributory - Caffeine Use Caffeine Use: Reports: Soda, Tea ED ROS GENERAL - Review of Systems Review Of Systems: See Below - Physical Exam Exam: See Below Course - Vital Signs Last Recorded V/S: Last Vital Signs Temp 208.6 F H 12/25/19 07:40 Pulse 88 12/25/19 07:40 Resp 16 12/25/19 07:40 BP 119/79 12/25/19 07:40 Pulse Ox 98 12/25/19 07:40 - Orders/Labs/Meds Meds: Medications Discontinued Medications Generic Name Dose Route Start Last Admin Trade Name Freq PRN Reason Stop Dose Admin Hydromorphone HCl 1 mg 12/25/19 08:44 12/25/19 08:05 Dilaudid IM 12/25/19 08:45 1 mg ONETIME ONE Administration Ketorolac Tromethamine 30 mg 12/25/19 08:44 12/25/19 08:03 Toradol IM 12/25/19 08:45 30 mg ONETIME ONE Administration Departure - Departure Time of Disposition: 08:30 Disposition: Home, Self-Care 01 Clinical Impression: Post-traumatic headache, unspecified Qualifiers: Headache chronicity pattern: chronic headache Intractability: not intractable Qualified Code(s): G44.329 - Chronic post-traumatic headache, not intractable - Discharge Information *PRESCRIPTION DRUG MONITORING PROGRAM REVIEWED*: No *COPY OF PRESCRIPTION DRUG MONITORING REPORT IN PATIENT JAYLEN: No Instructions: Post-Concussion Syndrome, General Headache Without Cause, Easy-to -Read Referrals: PCP,None [Primary Care Provider] - Forms: ED Department Discharge Additional Instructions: Home to rest, continue usual medications. Follow up with neurologist on Friday by telephone. Percocet 1 to 2 tablets by mouth as needed for headache. Use sparingly, follow up in the clinic as needed with Dr. Frias. Sepsis Event Note - Evaluation Sepsis Screening Result: No Definite Risk - Focused Exam Date Exam was Performed: 12/27/19 Time Exam was Performed: 08:33
== END 2019-12-25 08:25 | disposition home or self-care (01) ==
LOC: LB.ED 07:21
DX: G44.329 Chronic post-traumatic headache, not intractable (principal); F41.9 Anxiety disorder, unspecified; Z79.899 Other long term (current) drug therapy
CPT/HCPCS: 96372; 99283; 99284; A9270-GY; J1170; J1885

== ENCOUNTER 2020-01-14 18:39 | Emergency (ER) | payer MEDICAID ==
[2020-01-14] MEDS ORDERED: HYDROmorphone 2 MG/ML SDV IM ONE (19:03)
[2020-01-14] MEDS ORDERED: Ketorolac 60 MG/2 ML SDV IM ONE (19:03)
--- NOTE | 2020-01-14 19:23 | EDM.PDOC ---
ED HPI GENERAL MEDICAL PROBLEM - General Chief Complaint: General Stated Complaint: MIGRAINE Time Seen by Provider: 01/14/20 19:00 Source of Information: Reports: Patient History Limitations: Reports: No Limitations - History of Present Illness INITIAL COMMENTS - FREE TEXT/NARRATIVE: This patient presents to the ED for evaluation of a headache. She sustained an epidural bleed that was surgically managed just over a year ago. Since that time she has had daily headaches and states that sometimes they are manageable and other times they are not. She has been seen on a couple of occasions for these in the ED and hasn't really found anything to be particularly helpful to her. On her last visit she was given Dilaudid and Toradol which did relieve her headache for a few hours but it did return. Past medical records are limited to those few visits she has had here. She does use narcotic medication at home on a daily basis and states that this never completely resolves her headaches either. She has had some nausea today with a couple of vomiting episodes this morning. She denies other concerns or complaints. Onset: Today Duration: Getting Worse Location: Reports: Head Quality: Reports: Sharp, Throbbing Severity: Severe Improves with: Reports: None, Medication (some decrease in intensity with medication) Context: Reports: Activity Associated Symptoms: Reports: Loss of Appetite, Nausea/Vomiting. 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 01/20/19 [Rx] Propranolol [Inderal] 10 mg PO BID 30 Days tablet 06/12/19 [Rx] oxyCODONE 1 - 2 tab PO Q6H PRN #30 tablet 01/20/19 [Rx] ALPRAZolam [Alprazolam] 0.25 mg PO TID 04/15/19 [History] Gabapentin [Neurontin] 1,200 mg PO TID 04/15/19 [History] Ketorolac [Toradol] 1 - 2 mg PO BEDTIME 04/15/19 [History] Past Medical History HEENT History: Reports: Hard of Hearing, Other (See Below) Cardiovascular History: Reports: None Respiratory History: Reports: Bronchitis, Recurrent, Pneumonia, Recurrent Gastrointestinal History: Reports: Other (See Below) Other Gastrointestinal History: IBS Genitourinary History: Reports: None 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: Musculoskeletal History: Reports: Back Pain, Chronic, Neck Pain, Chronic Neurological History: Reports: Head Trauma, Seizure, Other (See Below) Other Neuro History: Recent traumatic brain injury with hematoma Psychiatric History: Reports: Addiction, Anxiety, Depression, Emotional Problems , Mood Swings, Panic Attack, Suicide Attempt, Suicidal Ideation Endocrine/Metabolic History: Reports: None Hematologic History: Reports: Anemia Other Hematologic History: Border line anemia Dermatologic History: Reports: None, Other (See Below) Other Dermatologic History: Yeast on upper left shoulder/chest area - Infectious Disease History Infectious Disease History: Reports: Chicken Pox - Past Surgical History Head Surgeries/Procedures: Reports: Other (See Below) HEENT Surgical History: Reports: Tonsillectomy Cardiovascular Surgical History: Reports: None Respiratory Surgical History: Reports: None Female Surgical History: Reports: None Endocrine Surgical History: Reports: None Neurological Surgical History: Reports: None Dermatological Surgical History: Reports: None Social & Family History - Family History Family Medical History: Noncontributory - Caffeine Use Caffeine Use: Reports: Soda, Tea ED ROS GENERAL - Review of Systems Review Of Systems: Comprehensive ROS is negative, except as noted in HPI. ED EXAM, GENERAL - Physical Exam Exam: See Below Exam Limited By: No Limitations General Appearance: Alert, Anxious, Moderate Distress Eye Exam: Bilateral Eye: PERRL Ears: Normal External Exam Nose: Normal Inspection Throat/Mouth: Normal Inspection Head: Atraumatic, Normocephalic, Other (localizes headache to occipital area; "same as always") Neck: Normal Inspection, Supple, Non-Tender, Full Range of Motion Respiratory/Chest: No Respiratory Distress, No Accessory Muscle Use Course - Vital Signs Last Recorded V/S: Last Vital Signs Temp 36.5 C 01/14/20 18:54 Pulse 72 01/14/20 18:54 Resp 18 01/14/20 18:54 BP 95/54 L 01/14/20 18:54 Pulse Ox 98 01/14/20 18:54 - Orders/Labs/Meds Meds: Medications Discontinued Medications Generic Name Dose Route Start Last Admin Trade Name Gladis FINNEY Reason Stop Dose Admin Hydromorphone HCl 1 mg 01/14/20 19:03 01/14/20 19:07 Dilaudid IM 01/14/20 19:04 1 mg ONETIME ONE Administration Ketorolac Tromethamine 60 mg 01/14/20 19:03 01/14/20 19:08 Toradol IM 01/14/20 19:04 60 mg ONETIME ONE Administration - Re-Assessments/Exams Free Text/Narrative Re-Assessment/Exam: 01/14/20 19:49 This patient presents with a headache. I considered a broad differential diagnosis for this patient including tension, migraine, analgesic rebound, occipital neuralgia, etc. Other less common but serious causes considered included meningitis, encephalitis, subarachnoid bleed, stroke, tumor, etc. The patient has no signs of serious headache etiologies at this point. No advanced imaging is indicated, nor is CT/lumbar puncture for SAH. Patients questions were answered and they feel improved after the above interventions in the UR. Supportive outpatient management is therefore indicated. Headache precautions given for home. Departure - Departure Time of Disposition: 19:55 Disposition: Home, Self-Care 01 Condition: Fair Clinical Impression: Headache - Discharge Information Instructions: Recurrent Migraine Headache, [id number] Forms: ED Department Discharge Sepsis Event Note - Evaluation Sepsis Screening Result: No Definite Risk - Focused Exam Vital Signs: Vital Signs Temp Pulse Resp BP Pulse Ox 01/14/20 18:54 36.5 C 72 18 95/54 L 98 Date Exam was Performed: 01/14/20 Time Exam was Performed: 19:49
== END 2020-01-14 19:37 | disposition home or self-care (01) ==
LOC: LB.ED 18:39
DX: R51 Headache (principal); F41.9 Anxiety disorder, unspecified; Z79.899 Other long term (current) drug therapy
CPT/HCPCS: 96372; 99284; J1170; J1885

== ENCOUNTER 2020-01-22 16:33 | Emergency (ER) | payer MEDICAID ==
[~2020-01-22 16:33] MED LIST: Acetaminophen/HYDROcodone 325-10 MG Tab ONE
[2020-01-22] MEDS ORDERED: Ketorolac 60 MG/2 ML SDV IM ONE (18:17)
[2020-01-22] MEDS ORDERED: HYDROmorphone 2 MG/ML SDV IM ONE (18:18)
--- NOTE | 2020-01-22 20:18 | ER ---
REASON FOR EMERGENCY ROOM VISIT: Headache. HISTORY: This 44-year-old woman has had problems with severe chronic headaches occurring on a daily basis for over a year. She has been into the emergency room as well as numerous clinic visits for this and her pain control has required a variety of nonnarcotic and narcotic analgesics both parenterally and orally. Lately, she has been maintained on a monthly prescription of oxycodone and she receives 25 tablets of these every month by Dr. Frias. She does have 2 of her oxycodone tablets remaining. However, she is not scheduled to have a refill of this until 01/28, 1 week from now. She states that her headache seems to be more severe than usual, but this pattern is not uncommon for her, where she has several episodes that are mild on a daily basis, punctuated with occasional periods or days when she has more severe headaches. They all seem to be rather similar in nature, but differ in severity. Today, she is having 1 of those days where her headache is more severe and it is reached a point where she feels that she needs something additionally. She is also concerned about running out of her oxycodone tablets. She describes the headache as a constant over the left parietal area, but it tends to wax and wane throughout the day. Some days it is mild in which she does not have to take anything. Other days, it is more severe according to the patient. She states it is not throbbing. She does occasionally get nausea when it is severe and even gets shaky. She denies any numbness, weakness, or visual changes. She states that she has looked into a Pain Management Clinic on her own in the [facility] and is considering this. This was not something that was arranged through Dr. Frias, her primary care provider. She does admit that she is "probably" an alcoholic, but that now she states she only drinks a couple of glasses of wine or a few beers a "few times a week." She does admit to smoking marijuana periodically. She states that she has been interested in medical marijuana for management of her pain. The reason for her headache dates back to December of last year when she underwent a craniotomy for an epidural bleed that was a result of her having sustained a fall while she was at an inpatient treatment facility, the [facility]. She states she was hospitalized there for anxiety and depression and she does indeed have a history of this. Subsequent to her craniotomy, she has had problem with her headaches. Since her head injury, she states that she has had markedly diminished taste and smell and food does not appeal to her and as a consequence of this, she has lost 30 pounds in the past year. In a course of her multiple visits, she has had workups that have included CT scans that were negative. PAST MEDICAL HISTORY: Significant for; 1. Anxiety and depression. 2. History of anemia. 3. History of migraines. MEDICATIONS: Reviewed. Please see EMR. It is noteworthy that she is on the oxycodone and she has 2 tablets left. She also is on Inderal, pantoprazole, gabapentin 1200 mg p.o. t.i.d., and alprazolam. ALLERGIES: SHE DENIES ANY ALLERGIES TO MEDICATIONS. REVIEW OF SYSTEMS: Pertinent positives and negatives as listed above in the HPI. SOCIAL HISTORY: She lives with her father, sisters and daughter approximately 9 miles out of [place]. PHYSICAL EXAMINATION: GENERAL: She is awake, cooperative, and does seem to be somewhat anxious. VITAL SIGNS: Her temperature is 36.8, pulse of 68, blood pressure 104/76, respirations 16, O2 sats 97%. HEENT: Head is normocephalic and atraumatic. There is no tenderness to palpation. No trigger point could be identified. No temporal artery tenderness. TMs are identified and normal. There is no hemotympanum noted. Pupils equally round and reactive to light. There is no conjunctivitis. Oropharynx is normal. NECK: Supple. No JVD. No adenopathy. CHEST: Clear to auscultation. CARDIAC: Regular rate without murmur. ABDOMEN: Soft and nontender. NEUROLOGIC: Her cranial nerves 2 through 12 are intact. Deep tendon reflexes in both lower extremities are symmetrical and equal bilaterally. Her muscle strength, bulk and tone are normal and symmetrical. Sensation is normal to crude touch. IMPRESSION: Headache, posttraumatic versus post craniotomy. PLAN: A long discussion was undertaken regarding the hazards of continued opiate use. In her case, I think it is 2 things worth focusing on at this point in time. One would be to establish a pain contract with her provider, Dr. Frias, and the second is to discuss with Dr. Frias further the feasibility of referral to a Pain Management Clinic. I emphasized to her that I think at this juncture, the most important thing would be initially to get her on a pain management contract with her provider, Dr. Frias. It appears that she seems to run out of her medication on weekends and she is definitely frustrated with discussion we had to have in my opinion. I went ahead and gave her Toradol 30 mg IM as well as Dilaudid 1 mg IM. She was given a limited prescription of hydrocodone 10/325, dispensed #4. She also has 2 tablets of oxycodone. I advised her to give Dr. Frias's office a call on Friday to set up an earlier appointment so that she can discuss the above-mentioned matters including a pain contract and referral to a Pain Management Clinic. She understands and agrees with this. All questions were answered. AYANA /[id number]
== END 2020-01-22 18:28 | disposition home or self-care (01) ==
LOC: LB.ED 16:33
DX: R51 Headache (principal); F41.9 Anxiety disorder, unspecified; F32.9 Major depressive disorder, single episode, unspecified; Z79.899 Other long term (current) drug therapy
CPT/HCPCS: 96372; 99283; A9270; J1170; J1885

== ENCOUNTER 2020-02-15 23:20 | Emergency (ER) | payer MEDICAID ==
[2020-02-15] MEDS ORDERED: diphenhydrAMINE 50 MG/ML SDV IM ONE (23:51)
[2020-02-15] MEDS ORDERED: Metoclopramide 10 MG/2 ML SDV IM ONE (23:51)
[2020-02-15] MEDS ORDERED: Ketorolac 60 MG/2 ML SDV IM ONE (23:51)
--- NOTE | 2020-02-15 23:58 | EDM.PDOC ---
ED HPI GENERAL MEDICAL PROBLEM - General Chief Complaint: Headache Stated Complaint: HEADACHE Time Seen by Provider: 02/15/20 23:30 Source of Information: Reports: Patient History Limitations: Reports: No Limitations - History of Present Illness INITIAL COMMENTS - FREE TEXT/NARRATIVE: Patient is a 44 y/o female, with PMHx significant for chronic migraines and TBI, that present with headache that is not improving with her usual medications oxycodone, propanolol, and zofran. She states the headache is the same as it usually is, dull, throbbing, constant, and left-sided. Patient denies any dizziness, vision changes, blurriness, nausea, vomiting, or numbness/tingling. She saw her neurologist at [place] today and received injections, which didn't help her pain. Patient visits the ED many times for her headaches and follows with Dr Frias for her pain management. Her neurologist states that the next step will be botox. - Related Data Allergies Allergy/AdvReac Type Severity Reaction Status Date / Time No Known Allergies Allergy Verified 01/14/20 18:53 Home Meds: Home Meds Dicyclomine [Bentyl] 20 mg PO TID PRN 01/12/19 [History] Loperamide [Imodium] 2 mg PO DAILY 01/12/19 [History] ALPRAZolam [Alprazolam] 0.5 mg PO Q8HR PRN #20 tablet 01/20/19 [Rx] Ondansetron [Zofran Odt] 8 mg PO TID PRN #30 tab.dis 01/20/19 [Rx] Pantoprazole Sodium 40 mg PO DAILY #30 tablet. 01/20/19 [Rx] Propranolol [Inderal] 10 mg PO BID 30 Days tablet 01/20/19 [Rx] oxyCODONE 1 - 2 tab PO Q6H PRN #30 tablet 01/20/19 [Rx] ALPRAZolam [Alprazolam] 0.25 mg PO TID 04/15/19 [History] Gabapentin [Neurontin] 1,200 mg PO TID 04/15/19 [History] Ketorolac [Toradol] 1 - 2 mg PO BEDTIME 04/15/19 [History] Past Medical History HEENT History: Reports: Hard of Hearing, Other (See Below) Other HEENT History: Head injury 1 year ago after a fall while she was in a treatment center in [facility] Cardiovascular History: Reports: None Respiratory History: Reports: Bronchitis, Recurrent, Pneumonia, Recurrent Gastrointestinal History: Reports: Other (See Below) Other Gastrointestinal History: IBS Genitourinary History: Reports: None 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: Musculoskeletal History: Reports: Back Pain, Chronic, Neck Pain, Chronic Neurological History: Reports: Head Trauma, Seizure, Other (See Below) Other Neuro History: Recent traumatic brain injury with hematoma Psychiatric History: Reports: Addiction, Anxiety, Depression, Emotional Problems, Mood Swings, Panic Attack, Suicide Attempt, Suicidal Ideation Endocrine/Metabolic History: Reports: None Hematologic History: Reports: Anemia Other Hematologic History: Border line anemia Dermatologic History: Reports: None, Other (See Below) Other Dermatologic History: Yeast on upper left shoulder/chest area - Infectious Disease History Infectious Disease History: Reports: Chicken Pox - Past Surgical History Head Surgeries/Procedures: Reports: Other (See Below) HEENT Surgical History: Reports: Tonsillectomy Cardiovascular Surgical History: Reports: None Respiratory Surgical History: Reports: None Female Surgical History: Reports: None Endocrine Surgical History: Reports: None Neurological Surgical History: Reports: None Dermatological Surgical History: Reports: None Social & Family History - Family History Family Medical History: Noncontributory - Caffeine Use Caffeine Use: Reports: Soda, Tea ED ROS GENERAL - Review of Systems Review Of Systems: Comprehensive ROS is negative, except as noted in HPI. ED EXAM, GENERAL - Physical Exam Exam: See Below Exam Limited By: No Limitations General Appearance: Alert, No Apparent Distress Eye Exam: Bilateral Eye: EOMI, Normal Inspection, PERRL Head: Atraumatic, Normocephalic Neck: Normal Inspection, Supple, Non-Tender, Full Range of Motion Respiratory/Chest: No Respiratory Distress Extremities: Normal Inspection, Normal Range of Motion Neurological: Alert, Oriented, CN II-XII Intact, Normal Gait, No Motor/Sensory Deficits Skin Exam: Warm, Dry, Intact Course - Vital Signs Last Recorded V/S: Last Vital Signs Temp 36.6 C 02/15/20 23:48 Pulse 66 02/15/20 23:48 Resp 16 02/15/20 23:48 BP 122/84 02/15/20 23:48 Pulse Ox 99 02/15/20 23:48 - Orders/Labs/Meds Meds: Medications Discontinued Medications Generic Name Dose Route Start Last Admin Trade Name Gladis PRN Reason Stop Dose Admin Diphenhydramine HCl 25 mg 02/15/20 23:51 Benadryl IM 02/15/20 23:52 ONETIME ONE Ketorolac Tromethamine 60 mg 02/15/20 23:51 Toradol IM 02/15/20 23:52 ONETIME ONE Metoclopramide HCl 10 mg 02/15/20 23:51 Reglan IM 02/15/20 23:52 ONETIME ONE Departure - Departure Time of Disposition: 00:00 Disposition: Home, Self-Care 01 Condition: Good Clinical Impression: Chronic headache Qualifiers: Headache type: unspecified Intractability: intractable Qualified Code(s): R51 - Headache - Discharge Information *PRESCRIPTION DRUG MONITORING PROGRAM REVIEWED*: Not Applicable *COPY OF PRESCRIPTION DRUG MONITORING REPORT IN PATIENT JAYLEN: Not Applicable Sepsis Event Note (ED) - Evaluation Sepsis Screening Result: No Definite Risk - Focused Exam Vital Signs: Vital Signs Temp Pulse Resp BP Pulse Ox 02/15/20 23:48 36.6 C 66 16 122/84 99 - Assessment/Plan Plan: Patient given toradol, reglan, and benadryl IM. She has a ride home and will follow up with her neurologist and Dr. Frias. Return to the ED for fever >102, unable to tolerate fluids, difficulty breathing/swallowing, and/or persistent/worsening symptoms.
== END 2020-02-16 00:10 | disposition home or self-care (01) ==
LOC: LB.ED 23:20
DX: R51 Headache (principal); F41.9 Anxiety disorder, unspecified; Z79.899 Other long term (current) drug therapy
CPT/HCPCS: 96372; 99283; J1200; J1885; J2765

== ENCOUNTER 2020-02-25 07:01 | Emergency (ER) | payer MEDICAID ==
[2020-02-25] MEDS ORDERED: Prochlorperazine 10 MG Tab PO ONE (08:05)
[2020-02-25] MEDS ORDERED: Ketorolac 30 MG/ML SDV IM ONE (08:05)
[2020-02-25] MEDS ORDERED: HYDROmorphone 2 MG/ML SDV IM ONE (08:05)
[2020-02-25] MEDS ORDERED: HYDROmorphone 2 MG/ML SDV ONE (08:20)
[2020-02-25] MEDS ORDERED: Ketorolac 30 MG/ML SDV ONE (08:20)
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
[2020-02-25] MEDS ORDERED: Ketamine 200 MG/20 ML MDV IVPUSH ONE ×2 (09:04→09:55)
[2020-02-25] MEDS ORDERED: Sodium Chloride 0.9% 500 ML IV ONE (09:05)
[2020-02-25] MEDS ORDERED: Ketamine 200 MG/20 ML MDV ONE (09:32)
[2020-02-25] MEDS ORDERED: HYDROmorphone 2 MG/ML SDV IVPUSH ONE (10:27)
== END 2020-02-25 11:30 | disposition home or self-care (01) ==
LOC: LB.ED 07:01
DX: R51 Headache (principal); F41.9 Anxiety disorder, unspecified; Z79.899 Other long term (current) drug therapy; Z98.890 Other specified postprocedural states
CPT/HCPCS: 96372; 96374; 96375; 96376; 99283; A9270; J1170; J1885; J7040; Q0164

== ENCOUNTER 2020-03-18 01:33 | Emergency (ER) | payer MEDICAID ==
[2020-03-18] MEDS ORDERED: Ondansetron 4 MG/2 ML SDV IVPUSH ONE (02:00)
[2020-03-18] MEDS ORDERED: fentaNYL 100 MCG/2 ML SDV IVPUSH PRN (02:00)
[2020-03-18] MEDS ORDERED: ceFAZolin 1 GM in Sodium Chloride 0.9% 50 ML IV ONE (02:00)
[2020-03-18] MEDS ORDERED: Sodium Chloride 0.9% 1,000 ML IV ONE (02:00)
[2020-03-18] MEDS: Morphine 4 MG/ML VIAL IVPUSH ONE ×2 (02:15→02:25)
[2020-03-18] MEDS ORDERED: ceFAZolin 1 GM Vial ONE (02:21)
[2020-03-18] MEDS ORDERED: Morphine 4 MG/ML VIAL ONE ×2 (02:21→02:32)
[2020-03-18] MEDS ORDERED: fentaNYL 100 MCG/2 ML SDV ONE (02:39)
[2020-03-18] MEDS ORDERED: Ondansetron 4 MG/2 ML SDV ONE (02:40)
[2020-03-18] MEDS ORDERED: Sodium Chloride 0.9% 10 ML Syringe FLUSH PRN (03:40)
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
== END 2020-03-18 03:00 ==
LOC: LB.ED 01:33
DX: S81.832A Puncture wound without foreign body, left lower leg, initial encounter (principal); F10.229 Alcohol dependence with intoxication, unspecified; F41.9 Anxiety disorder, unspecified; F32.9 Major depressive disorder, single episode, unspecified; Y90.7 Blood alcohol level of 200-239 mg/100 ml; Z79.899 Other long term (current) drug therapy
CPT/HCPCS: 36415; 73560; 80053; 80307; 85025; 96365; 96375; 99285; J0690; J2270; J2405; J7030; J7050; 99284; A0425; A0429

== ENCOUNTER 2024-09-28 15:40 | Emergency (ER) | payer MEDICARE, MEDICAID ==
[2024-09-28 16:57] LABS: HEMATOCRIT 41.1 % (37.0-47.0); HEMOGLOBIN 13.4 g/dL (11.5-16.5); MEAN CORPUSCULAR HEMOGLOBIN 28.6 pg (27.0-32.0); MEAN CORPUSCULAR HGB CONC 32.6 g/dL (31.0-35.0); MEAN PLATELET VOLUME 9.2 fL (6.0-10.0); RED BLOOD CELL COUNT 4.68 M/uL (3.80-5.80); RED CELL DISTRIBUTION WIDTH 15.9 % (11.0-16.0); WHITE BLOOD CELL COUNT,WBC 9.3 K/uL (4.0-11.0)
[2024-09-28 17:22] LABS: ALBUMIN 3.4 g/dL (3.4-5.0); BILIRUBIN TOTAL 0.3 mg/dL (0.0-1.0); BUN/CREATININE RATIO 11.4 (6-25); CALCIUM 9.1 mg/dL (8.5-10.1); CARBON DIOXIDE,CO2 25.1 mmol/L (21.0-32.0); CREATININE 0.7 mg/dL (0.55-1.02); EST CRCL DRUG DOSING (CG) 95.58 mL/min; PROTEIN TOTAL,TP 6.7 g/dL (6.4-8.2); TSH ULTRASENSITIVE 1.209 uIU/mL (0.358-3.740)
[2024-09-28 17:24] LABS: ANION GAP 16.9 mmol/L (5.0-15.0)
[2024-09-28 17:39] LABS: AMPHETAMINES SCREEN, URINE POSITIVE (NEGATIVE); BARBITURATE SCREEN,URINE POSITIVE (NEGATIVE); METHAMPHETAMINES SCREEN, URINE NEGATIVE (NEGATIVE)
[2024-09-28 17:40] LABS: BENZODIAZEPINES SCREEN,URINE NEGATIVE (NEGATIVE); METHADONE SCREEN, URINE NEGATIVE (NEGATIVE); OXYCODONE SCREEN,URINE NEGATIVE (NEGATIVE); THC SCREEN,URINE 50 NG/ML NEGATIVE (NEGATIVE)
[2024-09-28 18:14] LABS: APPEARANCE,URINE CLEAR (CLEAR); BILIRUBIN,URINE NEGATIVE (NEGATIVE); COLOR,URINE OTHER; GLUCOSE,URINE NEGATIVE (NEGATIVE); KETONES,URINE NEGATIVE (NEGATIVE); LEUKOCYTE ESTERASE,URINE NEGATIVE (NEGATIVE); NITRITE,URINE NEGATIVE (NEGATIVE); OCCULT BLOOD,URINE NEGATIVE (NEGATIVE); PH,URINE 6.5 (5.0-8.0); PROTEIN,URINE NEGATIVE (NEGATIVE); UROBILINOGEN,URINE 0.2 E.U./dL (0.2-1.0)
[2024-09-28] MEDS: Potassium Chloride 20 MEQ Tab.ER PO ONE (18:25)
[2024-09-28] MEDS: Gabapentin 300 MG Cap PO ONE (18:25)
[2024-09-28] MEDS: Pregabalin 50 MG Cap PO ONE (18:25)
== END 2024-09-28 18:26 ==
LOC: LB.ED 15:40
DX: R45.851 Suicidal ideations (principal); F41.9 Anxiety disorder, unspecified; Z88.8 Allergy status to other drugs, medicaments and biological substances; Z79.899 Other long term (current) drug therapy
CPT/HCPCS: 36415; 80053; 80307; 81003; 81025; 84443; 85027; 99284; 99285; A0425; A0428

== ENCOUNTER 2025-02-25 03:14 | Emergency (ER) | payer MEDICARE, MEDICAID ==
[2025-02-25] MEDS ORDERED: Sodium Chloride 0.9% 10 ML Syringe FLUSH PRN (03:52)
[2025-02-25] MEDS: Prochlorperazine 10 MG/2 ML SDV IVPUSH ONE (03:59)
[2025-02-25] MEDS: diazePAM 5 MG/ML MDV IVPUSH ONE (04:00)
[2025-02-25] MEDS: Ketorolac 15 MG/ML SDV IVPUSH ONE (04:01)
== END 2025-02-25 05:10 | disposition left against medical advice (07) ==
LOC: LB.ED 03:14
DX: R51.9 Headache, unspecified (principal); Z88.8 Allergy status to other drugs, medicaments and biological substances; Z79.899 Other long term (current) drug therapy; Z86.16 Personal history of COVID-19
CPT/HCPCS: 96374; 96375; 99283-25; J0780; J1885; J3360; J7030